=== PATIENT | female | born 1955 | race African-American/Black ===

== ENCOUNTER 2016-12-09 13:51 | Emergency (ER) | payer MEDICARE, MEDICAID ==
[~2016-12-09] VITALS: Ht 185.4 cm; Wt 78.0 kg
[~2016-12-09 13:51] MED LIST: ESOM40CA; PREG100C PO; TOPI100T9 PO
[2016-12-09] MEDS ORDERED: DIAZEPAM 5 MG TABLET PO ONE (20:45)
[2016-12-09 21:51] LABS: CLARITY URINE CLEAR (CLEAR); COLOR URINE YELLOW (YELLOW); GLUCOSE URINE NEGATIVE (NEGATIVE); KETONES URINE NEGATIVE (NEGATIVE); LEUKOCYTE ESTERASE URINE TRACE (NEGATIVE); NITRITE URINE NEGATIVE (NEGATIVE); OCCULT BLOOD URINE NEGATIVE (NEGATIVE); PH URINE 5.5 (4.5-8.0); PROTEIN URINE NEGATIVE (NEGATIVE); SPECIFIC GRAVITY URINE 1.019 (1.005-1.030); UROBILINOGEN URINE 0.2 E.U./dL (0.2-1.0)
[2016-12-09] MEDS ORDERED: ONDANSETRON HCL 4MG/2ML VIAL IM STA (23:24)
[2016-12-09] MEDS ORDERED: MORPHINE SULFATE 10 MG/ML CPJ IM ONE (23:30)
[2016-12-10] VITALS: BP 158/94
== END 2016-12-10 00:01 | disposition home or self-care (01) ==
LOC: ER 13:51
DX: M54.9 Dorsalgia, unspecified (principal); G89.29 Other chronic pain; N39.0 Urinary tract infection, site not specified; Z88.6 Allergy status to analgesic agent; Z88.8 Allergy status to other drugs, medicaments and biological substances; Z88.1 Allergy status to other antibiotic agents; J45.909 Unspecified asthma, uncomplicated; Z98.890 Other specified postprocedural states
CPT/HCPCS: 81001; 96372; 99284; J2270; J2405

== ENCOUNTER 2021-03-05 10:07 | Emergency (ER) | payer MEDICARE, MEDICAID ==
[~2021-03-05] VITALS: Ht 185.4 cm; Wt 75.0 kg
[~2021-03-05 10:07] MED LIST changes: +TOP100 PO; -TOPI100T9 PO
[2021-03-05] MEDS ORDERED: ONDANSETRON HCL 4MG/2ML INJ IM ONE (12:30)
[2021-03-05] MEDS ORDERED: SODIUM CHLORIDE 0.9% 1,000 ML IV ONE (12:30)
[2021-03-05] MEDS ORDERED: MECLIZINE 25MG TABLET PO ONE (12:30)
[2021-03-05 13:25] LABS: BASOPHILS % 0.9 % (0.0-2.0); EOSINOPHILS % 0.6 % (0.0-5.0); HEMATOCRIT. 45.6 % (36.0-48.0); HEMOGLOBIN. 14.7 g/dL (12.0-16.0); MEAN CORPUSCULAR HEMOGLOBIN 28.2 pg (28.0-32.0); MEAN CORPUSCULAR VOLUME 87.3 fL (81.0-99.0); MEAN PLATELET VOLUME 9.9 fl (7.4-10.4); MONOCYTES % 8.4 % (2.0-8.0); NEUTROPHILS % 65.1 % (40.0-76.0); PLATELET 252 x1000/uL (130-400); RED BLOOD CELL COUNT 5.23 mill/uL (4.2-5.4); RED CELL DISTRIBUTION WIDTH 14.7 % (11.6-14.6)
[2021-03-05 13:35] LABS: CHLORIDE 106 mEq/L (98-107)
[2021-03-05] MEDS ORDERED: IOHEXOL-300 100 ML BOTTLE ONE (15:15)
[2021-03-05 15:49] VITALS: BP 115/85
== END 2021-03-05 15:49 | disposition home or self-care (01) ==
LOC: ER 10:07
DX: H81.10 Benign paroxysmal vertigo, unspecified ear (principal); G89.29 Other chronic pain; M54.50 Low back pain, unspecified; K21.9 Gastro-esophageal reflux disease without esophagitis; J45.909 Unspecified asthma, uncomplicated; Z98.1 Arthrodesis status; Z88.8 Allergy status to other drugs, medicaments and biological substances; Z88.6 Allergy status to analgesic agent
CPT/HCPCS: 36415; 74177; 80053; 84484; 85025; 93005; 96360; 96372; 99285; J2405; J7030; J8597; Q9967